=== PATIENT | male | born 2000 | race Caucasian/White ===

== ENCOUNTER 2022-07-15 15:39 | Emergency (ER) | payer OTHER, SELFPAY ==
[2022-07-15 16:41] VITALS: BP 119/88; PULSE 96; RESP 19; TEMP 36.5; O2SAT 98; BMI 40.1
--- NOTE | 2022-07-15 16:59 | EXP.UTC ---
Discharge Plan Disposition Patient Disposition: Home, Self-Care Condition: Good Prescriptions Prescriptions: New amoxicillin-pot clavulanate 875-125 mg Tablet 1 tab PO Q12H Qty: 20 0RF ibuprofen [IBU] 800 mg tablet 800 mg PO TIDP PRN (Reason: Moderate Pain) Qty: 20 0RF Referrals Follow up/Referrals: Kiran Cooper [Referring] - See instructions Provider,Referral, [Primary Care Provider] - See instructions Activity Restrictions/Add. Instructions Additional Instructions/Restrictions: Take medication as prescribed Use dental balls as advised to help with dental pain Follow up with Dentist as soon as possible Return if needed Clinical Impressions Clinical Impression: Dental abscess Instructions Patient Instructions: Tooth Abscess, DI for Tooth Abscess, Amoxicillin and Clavulanic Acid Discharge ED Provider: [facility] General Stated complaint: Infected Tooth Mode of Arrival: Ambulatory Source of Information: Patient Limitations: No Limitations Time Seen by Provider: 07/15/22 16:59 Description of Symptoms (Recalled from Triage Doc. by RN): Pt c/o possible infected tooth on bottom left side since yesterday HEENT Symptoms (Recalled from RN notes): Yes (Possible infected tooth) Resp Symptoms (Recalled from RN notes): No Skin Symptoms (Recalled from RN notes): No MS Symptoms (Recalled from RN notes): No Functional Status (Recalled from RN notes): n/a History of Present Illness Provider Complaint: Patient states that he is here on vacation and started having pain on left lower gum area where he has a broken tooth States that feels like it is getting infected and starting to swell so they brought him in to get it checked out and get some antibiotics Related Data Previous Rx's Medication Instructions Recorded amoxicillin 875 mg-potassium 1 tab PO Q12H #20 tabs 07/15/22 clavulanate 125 mg tablet ibuprofen 800 mg tablet (IBU) 800 mg PO TIDP PRN Moderate Pain 07/15/22 #20 tabs Allergies Allergy/AdvReac Type Severity Reaction Status Date / Time No Known Allergies Allergy Verified 07/15/22 16:54 Worker's Comp Is this a Worker's Comp case?: No PFSH PFSH Social History Smoking Status: Unknown if ever smoked alcohol intake: never current occupational status: unemployed Travel in the last 8 weeks: None ROS Obtained: Yes All systems reviewed & no additional complaints except as documented and Yes Systems reviewed as appropriate & no additional complaints except as documented Constitutional Constitutional: Reports system reviewed and no additional complaints, except as documented and Reports as per HPI ENT Ears, Nose, Mouth, and Throat: Reports system reviewed and no additional complaints, except as documented, Reports as per HPI and Reports dental pain Cardiovascular Cardiovascular: Reports system reviewed and no additional complaints, except as documented and Reports as per HPI Physical Exam General General appearance: alert and in no apparent distress Expanded ENT Exam Teeth exam: Present dental caries, fractured tooth # and other (swelling and redness to left lower gumline) Respiratory Respiratory exam: Present normal lung sounds bilaterally; Absent respiratory distress or wheezes Cardiovascular Cardiovascular exam: Present regular rate, normal rhythm and normal heart sounds Neurological Exam Neurological exam: Present alert, oriented X3 and normal gait Medical Decision Making Robb Inquiry Pt receiving controlled substance: No Robb was queried for this patient: No Vital Signs: 07/15/22 16:41 Temperature 97.7 F Temperature Source Oral Pulse Rate [Right Radial] 96 H Respiratory Rate 19 Blood Pressure [Left Arm] 119/88 Blood Pressure Mean [Left Arm] 98 Blood Pressure Source [Left Arm] Automatic Cuff Blood Pressure Position [Left Arm] Sitting 02 Sat by Pulse Oximetry 98 Oxygen Delivery Method Room Air
[2022-07-15 17:22] VITALS: BP 119/88; PULSE 96; RESP 19; TEMP 36.5; O2SAT 98
== END 2022-07-15 17:23 | disposition home or self-care (01) ==
PROVIDERS: Emergency Provider Nurse Practitioner
DX: K04.7 Periapical abscess without sinus (principal)
CPT/HCPCS: 99212; G0463

== ENCOUNTER 2022-09-28 14:45 | Emergency (ER) | payer OTHER, SELFPAY ==
[2022-09-28 16:20] VITALS: BP 0/0; PULSE 0; RESP 0; TEMP -17.7; TEMP 0; O2SAT 0
== END 2022-09-28 16:21 | disposition left against medical advice (07) ==
LOC: ER 16:15
PROVIDERS: Emergency Provider Emergency Medicine
DX: Z53.21 Procedure and treatment not carried out due to patient leaving prior to being seen by health care provider (principal)

== ENCOUNTER 2022-09-29 10:34 | Emergency (ER) | payer OTHER, SELFPAY ==
[2022-09-29 10:42] VITALS: BP 161/72; PULSE 103; RESP 16; TEMP 36.8; O2SAT 99; BMI 40.1
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
[2022-09-29 11:45] VITALS: BP 149/70; PULSE 105; RESP 18; TEMP 36.8; O2SAT 96
== END 2022-09-29 11:45 | disposition home or self-care (01) ==
PROVIDERS: Emergency Provider Emergency Medicine
DX: M25.561 Pain in right knee (principal); T14.8XXA Other injury of unspecified body region, initial encounter; V89.2XXA Person injured in unspecified motor-vehicle accident, traffic, initial encounter
CPT/HCPCS: 73562; 73610; 99283